=== PATIENT | female | born 1975 | race African-American/Black ===

== ENCOUNTER 2025-03-16 22:17 | Emergency (ER) | payer SELFPAY ==
[2025-03-16 22:20] VITALS: PULSE 83; RESP 16; O2SAT 100
== END 2025-03-16 22:49 | disposition left against medical advice (07) ==
LOC: ER 22:17
DX: R11.2 Nausea with vomiting, unspecified (principal); Z53.21 Procedure and treatment not carried out due to patient leaving prior to being seen by health care provider